=== PATIENT | male | born 1980 | race American Indian/Alaskan Native ===

== ENCOUNTER 2017-04-22 13:00 | Emergency (ER) | payer MEDICAID ==
[2017-04-22 13:53] VITALS: BP 120/76
[2017-04-22] MEDS ORDERED: TESSALON PERLES PO ONE (17:19)
--- NOTE | 2017-04-22 17:26 | XRay Report ---
FINAL REPORT EXAM: XR CHEST ROUTINE 2V HISTORY: cough TECHNIQUE: AP portable view of the chest PRIORS: FINDINGS: Lines, tubes, and devices: N/A Lungs and pleura: Trachea is normal in position. There is diffuse interstitial prominence bilaterally. Findings are most typical of fibrosis although unusual in a patient of this age group. Interstitial edema is therefore felt to be more likely. There is no evidence for focal consolidation, pleural effusion, vascular congestion, or pneumothorax. Mild apical pleural thickening on the right is noted. Cardiomediastinal silhouette: Cardiac and mediastinal silhouettes are unremarkable. Other: Bony structures are intact. IMPRESSION: Diffuse interstitial prominence bilaterally, most likely consistent with interstitial edema, given the patient's age. However, fibrosis is not excluded.
--- NOTE | 2017-04-22 17:26 | Emergency Department Report ---
- General Chief Complaint: Upper Respiratory Infection Stated Complaint: COUGH Time Seen by Provider: 04/22/17 16:12 Source: family Mode of arrival: Ambulatory Limitations: Altered Mental Status - History of Present Illness Initial Comments: This is a 36-year-old male accompanied by mother nontoxic, well nourished in appearance, no acute signs of distress presents to the ED complaining of dry cough 6 days. Mother states patient has been having dry cough for several days but denies any needed production. Denies any fever, chills, nausea, vomiting, chest pain, wheezing, hemoptysis, numbness or tingling, shortness of breath. Mostly patient's allergies to Haldol and Lincocin. Past medical history includes cerebral palsy. Mother is requesting for a primary care doctor /neurologist and deputy controller referral. MD Complaint: cough -: Gradual, days(s) (6) Severity: mild Severity scale (0 -10): 0 Consistency: constant Improves With: nothing Worsens With: nothing Associated Symptoms: cough. denies: fever, chills, myalgias, diaphoresis, headache, rhinorrhea, nasal congestion, sore throat, stiff neck, chest pain, shortness of breath, abdominal pain, nausea, vomiting, diarrhea, dysuria, rash, confusion, right sweats, weight loss, epistaxis, hoarseness, ear pain Treatments Prior to Arrival: none - Related Data Previous Rx's Medication Instructions Recorded Last Taken Type Benzonatate [Tessalon Perle] 100 mg PO DAILY #12 capsule 04/22/17 Unknown Rx Allergies Allergy/AdvReac Type Severity Reaction Status Date / Time haloperidol [From Haldol] Allergy Intermediate Unknown Verified 04/22/17 13:48 lincomycin [From Lincocin] Allergy Rash Verified 04/22/17 13:48 ED Review of Systems ROS: Stated complaint: COUGH Other details as noted in HPI Constitutional: denies: chills, fever Eyes: denies: eye pain, eye discharge, vision change ENT: denies: ear pain, throat pain Respiratory: cough. denies: shortness of breath, wheezing Cardiovascular: denies: chest pain, palpitations Endocrine: no symptoms reported Gastrointestinal: denies: abdominal pain, nausea, diarrhea Genitourinary: denies: urgency, dysuria Musculoskeletal: denies: back pain, joint swelling, arthralgia Skin: denies: rash, lesions Neurological: denies: headache, weakness, paresthesias Psychiatric: denies: anxiety, depression Hematological/Lymphatic: denies: easy bleeding, easy bruising ED Past Medical Hx - Past Medical History Previous Medical History?: No - Surgical History Past Surgical History?: No - Social History Smoking Status: Never Smoker Substance Use Type: None - Medications Home Medications: Home Medications Medication Instructions Recorded Confirmed Last Taken Type Benzonatate [Tessalon Perle] 100 mg PO DAILY #12 capsule 04/22/17 Unknown Rx ED Physical Exam - General Limitations: Altered Mental Status General appearance: alert, in no apparent distress - Head Head exam: Present: atraumatic, normocephalic, normal inspection - Eye Eye exam: Present: normal appearance, PERRL, EOMI. Absent: scleral icterus, conjunctival injection, nystagmus, periorbital swelling, periorbital tenderness Pupils: Present: normal accommodation - ENT ENT exam: Present: normal exam, normal orophraynx, mucous membranes moist, TM's normal bilaterally, normal external ear exam - Neck Neck exam: Present: normal inspection, full ROM. Absent: tenderness, meningismus, lymphadenopathy, thyromegaly - Respiratory Respiratory exam: Present: normal lung sounds bilaterally. Absent: respiratory distress, wheezes, rales, rhonchi, stridor, chest wall tenderness, accessory muscle use, decreased breath sounds, prolonged expiratory - Cardiovascular Cardiovascular Exam: Present: regular rate, normal rhythm, normal heart sounds. Absent: bradycardia, tachycardia, irregular rhythm, systolic murmur, diastolic murmur, rubs, gallop - GI/Abdominal GI/Abdominal exam: Present: soft, normal bowel sounds. Absent: distended, tenderness, guarding, rebound, rigid, diminished bowel sounds - Rectal Rectal exam: Present: deferred - Extremities Exam Extremities exam: Present: normal inspection, full ROM, normal capillary refill. Absent: tenderness, pedal edema, joint swelling, calf tenderness - Back Exam Back exam: Present: normal inspection, full ROM. Absent: tenderness, CVA tenderness (R), CVA tenderness (L), muscle spasm, paraspinal tenderness, vertebral tenderness, rash noted - Neurological Exam Neurological exam: Present: alert, oriented X3, CN II-XII intact, normal gait, reflexes normal - Psychiatric Psychiatric exam: Present: normal affect, normal mood - Skin Skin exam: Present: warm, dry, intact, normal color. Absent: rash ED Course Vital Signs 04/22/17 13:48 Temperature 98.4 F Pulse Rate 82 Respiratory 18 Rate Blood Pressure 120/76 O2 Sat by Pulse 96 Oximetry - Reevaluation(s) Reevaluation #1: 04/22/17 17:27 Patient is acting appropriate age and smiling with no signs of distress noted. Reevaluation #2: Mother stated symptoms of cough subsided after receiving Tessalon Perles. - Consultations Consultation #1: 04/22/17 17:39 Dr. Montoya has been consulted about patient history, physical exam, and xray report and agrees to the plan of care in the ED with consultation with Pulmonology. Consultation #2: 04/22/17 18:28 Tono Agrawal (pulmonology) was consulted about patient history, physical exam , and xray results and stated if BNP is not elevated he can follow-up with him in 24 hours in his office and stated maybe be a aspiration problem ED Medical Decision Making - Lab Data Result diagrams: 04/22/17 17:46 04/22/17 17:46 - Radiology Data Radiology results: report reviewed interpreted by me: Dictated by radiologist Diffuse interstitial prominence bilaterally, most likely consistent with an interstitial edema, given the patient's age. However, fibrosis is not excluded. - Medical Decision Making 36-year-old male that presents with cough. X-ray has been obtained and dictated by radiologist. Dr. Montoya was consulted about patient history, physical exam and x-ray results and agrees to plan of care with consultation with research anthropologist. Tono Agrawal (pulmonology) was consulted about patient history, physical exam, and xray results and stated if BNP is not elevated he can follow-up with him in 24 hours in his office and stated maybe be a aspiration problem. CBC, BMP, and BNP has been obtained with all normal limits. Patient received Tessalon Perle at discharge. Patient was instructed to follow-up with a primary care doctor/research anthropologist in 24 hours or if symptoms worsen and continue return to emergency room as soon as possible possible. Patient is hemodynamically stable with stable vital signs. Patient states he is feeling better. At time time of discharge, the patient does not seem toxic or ill in appearance. No acute signs of distress noted. Patient agrees to discharge treatment plan of care. No further questions noted by the patient. Critical care attestation.: If time is entered above; I have spent that time in minutes in the direct care of this critically ill patient, excluding procedure time. ED Disposition Clinical Impression: Cough Disposition: DC-01 TO HOME OR SELFCARE Is pt being admited?: No Does the pt Need Aspirin: No Condition: Stable Instructions: Benzonatate (By mouth) Additional Instructions: Follow-up with a primary care doctor in 3-5 days or if symptoms worsen and continue return to emergency room as soon as possible possible. Prescriptions: Benzonatate [Tessalon Perle] 100 mg PO DAILY #12 capsule Referrals: [facility] [place] [Outside] - 3-5 Days [facility] [Outside] - 3-5 Days JING BRUNO MD [Staff Physician] - 3-5 Days VIBHA MORATAYA MD [Staff Physician] - 3-5 Days JOVITA GILLIS MD [Staff Physician] - 3-5 Days [facility], [Primary Care Provider] - 3-5 Days NADYA HIDALGO MD [Staff Physician] - 24 Hours BOBBY GARZA MD [Staff Physician] - 3-5 Days Forms: Work/School Release Form(ED)
[2017-04-22 18:01] LABS: Hematocrit 44.3 % (35.5-45.6); Hemoglobin 14.5 gm/dl (11.8-15.2); Mean Corpuscular HGB Conc 33 % (32-34); Mean Corpuscular Hemoglobin 29 pg (28-32); Mean Corpuscular Volume 87 fl (84-94); Platelet Count 238 K/mm3 (140-440); Red Blood Count 5.08 M/mm3 (3.65-5.03); Red Cell Distribution Width 13.7 % (13.2-15.2)
[2017-04-22 18:02] LABS: Basophils % (Auto) 0.9 % (0.0-1.8); Eosinophils % (Auto) 4.8 % (0.0-4.3)
[2017-04-22 18:16] LABS: Chloride 100.5 mmol/L (98-107); Potassium 4.1 mmol/L (3.6-5.0); Sodium 141 mmol/L (137-145)
[2017-04-22 18:17] LABS: Anion Gap 20 mmol/L; BUN/Creatinine Ratio 11; Blood Urea Nitrogen 9 mg/dL (9-20); Calcium 9.1 mg/dL (8.4-10.2); Carbon Dioxide 25 mmol/L (22-30); Glucose 86 mg/dL (75-100)
== END 2017-04-22 18:35 | disposition home or self-care (01) ==
LOC: ED 13:00
DX: R05 Cough (principal); Z88.8 Allergy status to other drugs, medicaments and biological substances
CPT/HCPCS: 36415; 71020; 80048; 83880; 85025